=== PATIENT | female | born 1970 | race Caucasian/White ===

== ENCOUNTER 2021-04-25 21:30 | Emergency (ER) | payer OTHER ==
[~2021-04-25] VITALS: Ht 157.5 cm; Wt 76.7 kg
[2021-04-25 21:41] VITALS: BP 177/87
--- NOTE | 2021-04-25 21:46 | NUR ---
PATIENT AMBULATED TO LOBBY WITH STEADY GAIT.
[2021-04-26] MEDS ORDERED: KETOROLAC 60 MG/2 ML VIAL IM ONE (00:20)
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
[2021-04-26] MEDS ORDERED: MORPHINE SULFATE 4 MG/ML SYR IM ONE (00:50)
--- NOTE | 2021-04-26 01:00 | NUR ---
Pt states she has a ride home.
[2021-04-26 01:14] VITALS: BP 170/80
--- NOTE | 2021-04-26 01:14 | NUR ---
Patient discharged with v/s stable. Written and verbal after care instructions given and explained by Dr. Alfred. Patient verbalized understanding. Ambulatory with steady gait. All questions addressed prior to discharge. Advised to follow up with PMD.
--- NOTE | 2021-04-26 01:20 | NUR ---
Dolores alberto in [facility] - 04/26/21 at 0134 by SCOTT Pt states she has a ride home.
== END 2021-04-26 01:14 | disposition home or self-care (01) ==
LOC: MED 21:30
DX: G89.29 Other chronic pain (principal); M54.5 Low back pain; Z98.890 Other specified postprocedural states
CPT/HCPCS: 96372; 99284; J1885; J2270